=== PATIENT | female | born 1995 | race Two or more races ===

== ENCOUNTER 2017-09-12 16:45 | Observation (INO) | payer MEDICAID ==
[2017-09-12] MEDS ORDERED: PREN-96 PO (17:14)
== END 2017-09-12 18:40 | disposition home or self-care (01) | DRG 566 ==
LOC: LDRP 16:45 → UNDODISOB 18:40
PROVIDERS: ADMIT Specialist; ATTEND Specialist
DX: O36.5930 Maternal care for other known or suspected poor fetal growth, third trimester, not applicable or unspecified (principal); Z3A.37 37 weeks gestation of pregnancy
CPT/HCPCS: 59025; 76818; 81002; G0378

== ENCOUNTER 2017-09-16 11:25 | Inpatient (IN) | payer MEDICAID ==
[~2017-09-16] VITALS: Ht 1 cm; Wt 0.5 kg
[~2017-09-16 11:25] MED LIST: PREN-96 PO
[2017-09-16] MEDS ORDERED: LACT. RINGERS/OXYTOCIN 20UNITS 1,000 ML IV SCH (12:17)
[2017-09-16] MEDS ORDERED: LACTATED RINGER'S 1,000 ML IV SCH (12:17)
[2017-09-16] MEDS ORDERED: CARBOPROST TROMETHAMINE 250 MCG/1ML VIAL IM PRN (12:30)
[2017-09-16] MEDS ORDERED: NALBUPHINE HCL 10 MG/1ml INJECTION IV PRN (12:30)
[2017-09-16] MEDS ORDERED: WITCH HAZEL-GLYCERIN PAD TOP PRN (12:30)
[2017-09-16] MEDS ORDERED: LIDOCAINE 2% (LOCAL ANESTH.) PF 5ml SDV ID ONE (12:30)
[2017-09-16] MEDS ORDERED: DERMOPLAST 60ML BOTTLE TOP PRN (12:30)
[2017-09-16] MEDS ORDERED: METHYLERGONOVINE MALEATE 0.2 MG/ML AMP IM PRN (12:30)
[2017-09-16 13:00] LABS: Basophils # (auto) 0 uL; Basophils % (auto) 0.4 % (0.0-2.0); Eosinophils # (auto) 0 uL; Eosinophils % (auto) 0.3 % (0.0-7.0); Lymphocytes % (auto) 15.9 % (10.0-50.0); Mean Corpuscular Hemoglobin 27.4 pg (28.0-32.0); Mean Corpuscular Hgb Conc. 32.4 g/dL (32.0-36.0); Mean Corpuscular Volume 84.6 fL (80.0-100.0); Monocytes # (auto) 0.6 uL; Monocytes % (auto) 4.9 % (0.0-12.0); Neutrophils # (auto) 9.7 uL; Neutrophils % (auto) 78.5 % (37.0-80.0); Nucleated Red Blood Cells % 0.1 %; Platelet Count (auto) 210 10^3/uL (140-450); Red Blood Cells 4.38 10^6/uL (4.0-5.20); Red Cell Distribution Width 15.1 % (11.8-14.3); White Blood Cell 12.4 10^3/uL (4.4-10.8)
[2017-09-16 13:19] LABS: Urine Amorphous Crystal FEW /hpf (None Seen); Urine Bacteria FEW /hpf (None Seen); Urine Blood TRACE /uL (Negative); Urine Mucus FEW (None Seen); Urine Specific Gravity 1.014 (1.001-1.035); Urine WBC 87 /hpf (0 - 5)
[2017-09-16 13:22] LABS: INR 0.82 (0.9-1.15); Prothrombin Time 8.9 sec (9.27-12.13)
[2017-09-16 13:32] LABS: Albumin 2.5 g/dL (3.4-5.0); BUN/Creatinine Ratio 20.3; Bilirubin, Total 0.2 mg/dL (0.2-1.0); Calcium 9.1 mg/dL (8.5-10.1)
[2017-09-16] MEDS ORDERED: fentaNYL W ROPIVACAINE 150 ML EPI SCH (19:15)
[2017-09-16] MEDS ORDERED: ePHEDrine SULFATE 50 MG/ML AMP IV ONE (19:15)
[2017-09-16] MEDS ORDERED: NALOXONE HCL 0.4 MG/ML VIAL IV ONE (19:15)
[2017-09-16] MEDS ORDERED: LIDOCAINE HCL 2 %PF INJ 10ML AMP IJ ONE (19:15)
[2017-09-16] MEDS ORDERED: fentaNYL CITRATE 100 MCG/2 ML VL IV ONE (19:15)
[2017-09-16] MEDS ORDERED: SODIUM CHLORIDE LOCK 10 ML ONE (20:20)
[2017-09-17] MEDS ORDERED: IBUPROFEN 600 MG TAB PO PRN (02:30)
[2017-09-17] MEDS ORDERED: ACETAMINOPHEN 325 MG TAB PO PRN (02:30)
[2017-09-17 03:00] VITALS: BP 114/55
[2017-09-17 07:00] VITALS: BP 117/56
[2017-09-17 11:15] VITALS: BP 112/68
[2017-09-17 15:34] VITALS: BP 127/62
[2017-09-17 19:30] VITALS: BP 122/60
[2017-09-17 23:00] VITALS: BP 125/71
[2017-09-18 02:30] VITALS: BP 110/59
[2017-09-18 07:00] VITALS: BP 122/56
[2017-09-18 11:00] VITALS: BP 120/74
[2017-09-18 12:00] VITALS: BP 120/74
[2017-09-19 11:25] LABS: RPR Non Reactive (Non Reactive)
== END 2017-09-18 12:00 | disposition home or self-care (01) | DRG 560 ==
LOC: LDRP 11:25 → OBSVTOIN 11:25 → LDRP 09-17 10:09
PROVIDERS: ADMIT Obstetrics & Gynecology; ATTEND Obstetrics & Gynecology
PROC: 10E0XZZ Delivery of Products of Conception, External Approach (ICD-10-PCS; principal; 2017-09-17)
PROC: 00HU33Z Insertion of Infusion Device into Spinal Canal, Percutaneous Approach (ICD-10-PCS; 2017-09-17)
PROC: 3E0R3BZ Introduction of Anesthetic Agent into Spinal Canal, Percutaneous Approach (ICD-10-PCS; 2017-09-17)
DX: O42.92 Full-term premature rupture of membranes, unspecified as to length of time between rupture and onset of labor (principal); Z37.0 Single live birth; Z3A.37 37 weeks gestation of pregnancy
CPT/HCPCS: 36415; 51702; 59025; 59409; 62282; 80053; 81001; 81002; 85025; 85610; 85730; 86592; 86850; 86900; 86901; 94760; J2590; J3010